=== PATIENT | female | born 1965 | race Caucasian/White ===

== ENCOUNTER 2019-08-08 10:30 | Emergency (ER) | payer OTHER ==
[~2019-08-08] VITALS: Ht 157.5 cm; Wt 83.0 kg
[2019-08-08 10:40] VITALS: BP 131/73
--- NOTE | 2019-08-08 10:58 | NUR ---
c/o sharp pain right side of face,neck,trapezius muscle,shoulder x4 days also some dysphagia full clear speech with no accessory muscle use noted at this time has noticed cyst to thyroid has increased---- waiting for upcoming surgery appt. --seen by her pmd yesterday rx amoxicillin/ ibuprofen/ear drops has started treatment but here because pain remains strong. PAIN 10/ PT [facility] ONLY-REPORT RECIEVED FROM ABHIJEET IBRAHIM hx---thyroid cyst
--- NOTE | 2019-08-08 11:29 | NUR ---
dr miranda at bedside
[2019-08-08 12:07] VITALS: BP 128/74
--- NOTE | 2019-08-08 12:07 | NUR ---
Patient discharged with v/s stable. Written and verbal after care instructions given and explained in broken south korean/malay. Patient alert, oriented and verbalized understanding of instructions. Ambulatory with steady gait. All questions addressed prior to discharge. ID band removed. Patient advised to follow up with PMD in 2-3 days. Rx of norco given. Patient educated on indication of medication including possible reaction and side effects. Opportunity to ask questions provided and answered. pt instructed to not drive after taking medication
== END 2019-08-08 12:07 | disposition home or self-care (01) ==
LOC: MED 10:30
DX: J02.9 Acute pharyngitis, unspecified (principal); E04.1 Nontoxic single thyroid nodule; H92.02 Otalgia, left ear
CPT/HCPCS: 99283

== ENCOUNTER 2022-03-21 18:54 | Emergency (ER) | payer OTHER ==
[~2022-03-21] VITALS: Ht 154.9 cm; Wt 86.2 kg
[2022-03-21 19:05] VITALS: BP 122/88
--- NOTE | 2022-03-21 19:11 | NUR ---
W/C to lobby for next available bed.
--- NOTE | 2022-03-21 20:17 | NUR ---
Wheel chair to bed 8.
--- NOTE | 2022-03-21 20:40 | NUR ---
56/F BIB SELF C/O RLE PULLING PAIN 06/24 x 2 WKS , BUT WORSENIG TODAY. PATIENT STATED THAT PAIN WAS INTERMITTENT CRAMPING AND PULLING, BUT TODATY IT IS CONSTANT AND SHE IS HAVING DIFFICULTY WALKING. PATIENT IS UNABLE TO AMBULATED WITHOUT ASSIST D/T PAIN. PATIENT DENIES FALLS OR ANY TRAUMA TO THE LEG AT THIS TIME. PATIENT STATED SHE WAS SEEN BY PCP 03/20/22 AND XRAY SCHEDULED FOR WEDNESDAY. PATIENT DENIES SOB, CP, N/V/D AT THIS TIME. PMHX: HTN, HYPOTHYR. MEDS: LISINOPRIL, LEVOTHY. NKA
--- NOTE | 2022-03-21 20:40 | NUR ---
PATIENT STATED THAT SHE TOOK 800MG IBUPROFEN WITH NO RELIEF
[2022-03-21 21:26] VITALS: BP 130/68
--- NOTE | 2022-03-21 22:32 | NUR ---
PATIENT IN BED RESTING WITH LIGHTS OFF. BED LOW AND LOCKED. YOHANNES SIDE RAILS UP FOR SAFETY. ALL NEEDS MET AT THIS TIME.
--- NOTE | 2022-03-21 22:42 | NUR ---
Oren barrios in [facility] - 03/21/22 at 2313 by TYRELL MD BRIA SPARROW [facility]
--- NOTE | 2022-03-21 23:00 | NUR ---
PATIENT ELOPED FROM HOSPITAL AT THIS TIME WITHOUT BEING SEEN BY ERMD. MD FRASER MADE AWARE. Addendum: 03/21/22 at 2330 by MED PT LWBS. PT NOT EVALUATED BY DR. FRASER
== END 2022-03-21 23:00 | disposition left against medical advice (07) ==
LOC: MED 18:54
DX: M79.604 Pain in right leg (principal); R20.0 Anesthesia of skin; Z53.21 Procedure and treatment not carried out due to patient leaving prior to being seen by health care provider; I10 Essential (primary) hypertension